=== PATIENT | male | born 1940 | race Caucasian/White ===

== ENCOUNTER 2019-07-26 15:18 | Emergency (ER) | payer MEDICARE, OTHER ==
[~2019-07-26] VITALS: Ht 180.3 cm; Wt 100.9 kg
[2019-07-26 15:20] VITALS: Ht 180.3 cm; Wt 100.9 kg
[2019-07-26] MEDS ORDERED: PACERONE200 MG PO (15:26)
[2019-07-26] MEDS ORDERED: BAYER CHEWABLE81 MG PO (15:26)
[2019-07-26] MEDS ORDERED: ATIVAN0.5 MG PO (15:28)
[2019-07-26] MEDS ORDERED: LIPITOR20 MG PO (15:28)
[2019-07-26] MEDS ORDERED: LOPID600 MG PO (15:29)
[2019-07-26] MEDS ORDERED: CELEXA20 MG PO (15:29)
[2019-07-26] MEDS ORDERED: LEVO-T125 MCG PO (15:30)
[2019-07-26] MEDS ORDERED: FUROSEMIDE20 MG PO (15:30)
[2019-07-26] MEDS ORDERED: MELATONIN 3 MG1 TAB PO (15:31)
[2019-07-26] MEDS ORDERED: FAMOTIDINE10 MG PO (15:31)
[2019-07-26] MEDS ORDERED: MIRALAX17 GM PO (15:32)
[2019-07-26] MEDS ORDERED: SENNA LAXATIVE8.6 MG PO (15:33)
[2019-07-26] MEDS ORDERED: THERMOTABS 1 GM1 GM PO (15:33)
[2019-07-26] MEDS ORDERED: MIRAPEX0.25 MG PO (15:33)
[2019-07-26] MEDS ORDERED: ASCORBIC ACID500 MG PO (15:34)
[2019-07-26] MEDS ORDERED: ZINC-220220 MG PO (15:34)
[2019-07-26] MEDS ORDERED: TRAZODONE HCL150 MG PO (15:34)
[2019-07-26] MEDS ORDERED: CALMOSEPTINE OI71 GM (15:35)
[2019-07-26] MEDS ORDERED: COLACE100 MG PO (15:35)
[2019-07-26] MEDS ORDERED: MUCINEX600 MG PO (15:36)
[2019-07-26] MEDS ORDERED: [UNRECOGNIZED DRUG - OTHER] (15:37)
[2019-07-26] MEDS ORDERED: NEPHRO-VITE RX1 TAB (15:37)
[2019-07-26] MEDS ORDERED: K-DUR20 MEQ PO (15:37)
[2019-07-26] MEDS ORDERED: CARBIDOPA-LEVO1 EAC2 PO (15:38)
[2019-07-26] MEDS ORDERED: METHOCARBAMOL500 MG PO (15:38)
[2019-07-26] MEDS ORDERED: FLUTICASONE PRO16 GM (15:39)
[2019-07-26] MEDS ORDERED: IMODIUM2 MG PO (15:39)
[2019-07-26] MEDS ORDERED: VOLTAREN100 GM (15:39)
[2019-07-26] MEDS ORDERED: ACETAMINOPHEN325 MG PO (15:40)
[2019-07-26] MEDS ORDERED: SENNA LAXATIVE8.6 MG (15:40)
[2019-07-26 19:55] VITALS: BP 117/66
== END 2019-07-26 19:55 | disposition home or self-care (01) ==
LOC: D.ER 15:18
DX: K94.23 Gastrostomy malfunction (principal)

== ENCOUNTER 2019-07-30 02:29 | Emergency (ER) | payer MEDICARE, OTHER ==
[~2019-07-30] VITALS: Ht 180.3 cm; Wt 99.1 kg
[~2019-07-30 02:29] MED LIST: ACETAMINOPHEN325 MG PO; ASCORBIC ACID500 MG PO; ATIVAN0.5 MG PO; BAYER CHEWABLE81 MG PO; CALMOSEPTINE OI71 GM; CARBIDOPA-LEVO1 EAC2 PO; CELEXA20 MG PO; COLACE100 MG PO; FAMOTIDINE10 MG PO; FLUTICASONE PRO16 GM; FUROSEMIDE20 MG PO; IMODIUM2 MG PO; K-DUR20 MEQ PO; LEVO-T125 MCG PO; LIPITOR20 MG PO; LOPID600 MG PO; MELATONIN 3 MG1 TAB PO; METHOCARBAMOL500 MG PO; MIRALAX17 GM PO; MIRAPEX0.25 MG PO; MUCINEX600 MG PO; NEPHRO-VITE RX1 TAB; PACERONE200 MG PO; SENNA LAXATIVE8.6 MG; SENNA LAXATIVE8.6 MG PO; THERMOTABS 1 GM1 GM PO; TRAZODONE HCL150 MG PO; VOLTAREN100 GM; ZINC-220220 MG PO; [UNRECOGNIZED DRUG - OTHER]
[2019-07-30 02:32] VITALS: Ht 180.3 cm; Wt 99.1 kg
[2019-07-30 04:40] VITALS: BP 119/65
== END 2019-07-30 04:40 ==
LOC: D.ER 02:29
DX: K94.23 Gastrostomy malfunction (principal); G20 Parkinson's disease; I10 Essential (primary) hypertension; I48.91 Unspecified atrial fibrillation; K21.9 Gastro-esophageal reflux disease without esophagitis

== ENCOUNTER 2019-07-31 13:07 | Emergency (ER) | payer MEDICARE, OTHER ==
[~2019-07-31] VITALS: Ht 180.3 cm; Wt 99.5 kg
[2019-07-31 13:09] VITALS: Ht 180.3 cm; Wt 99.5 kg
[2019-07-31 15:58] VITALS: BP 114/68
== END 2019-07-31 17:34 ==
LOC: D.ER 13:07
DX: K94.23 Gastrostomy malfunction (principal); I10 Essential (primary) hypertension; I48.91 Unspecified atrial fibrillation; G20 Parkinson's disease; K21.9 Gastro-esophageal reflux disease without esophagitis

== ENCOUNTER → 2019-08-01 13:39 | Outpatient (CLI) | payer MEDICARE, OTHER ==
[2019-07-31 13:09] VITALS: BMI 30.6
[2019-08-04 13:58] VITALS: BMI 29.7
== END | disposition home or self-care (01) ==
LOC: D.RAD 13:39
PROVIDERS: ATTEND Family Medicine
DX: Z93.1 Gastrostomy status (principal)

== ENCOUNTER 2019-08-03 12:00 | Inpatient (IN) | payer MEDICARE, OTHER ==
[~2019-08-03] VITALS: Ht 180.3 cm; Wt 96.6 kg
--- NOTE | 2019-08-03 13:48 | MORECARE ---
CASE MANAGEMENT DISCHARGE SUMMARY PATIENT: MARSHALL GUTIERREZ UNIT: [id number] ADM DATE: 08/03/19 AGE: 78 : 41 SEX: M ROOM/BED: D.2234 AUTHOR: LORI ELLIOTT PHYSICIAN: REFERRING PHYSICIAN: BROOKLYN ARMENDARIZ MD DATE OF SERVICE: 08/03/19 Discharge Plan Patient Name: MARSHALL GUTIERREZ [facility] [facility] 1940 Planned Disposition: [facility] Facility Anticipated Discharge Date: Discharge Date: Expected LOS: Initial Reviewer: [email or web address] Initial Review Date: 08/03/2019 Generated: 08/03/19 2:48 pm DCPIA - Discharge Planning Initial Assessment Updated by [id number]: Sharmila Peterson on 08/03/19 1:47 pm * How many steps to enter\exit or inside your home? 0/0 * PCP Dr. Kam Nelson * Pharmacy [facility] * Preadmission Environment [facility] Facility * Facility Name [facility] * ADLs Total Dependent * Other Equipment All equipment provided by [facility]. He has a wheelchair and prosper lift pad here * List name and contact numbers for known caregivers / representatives who currently or will assist patient after discharge: Merari Mikelelmer [facility] - [phone] or [facility] [phone] Nic Ricketts [facility] [phone] * Community resources currently utilized None * Additional services required to return to the preadmission environment? No * Can the patient safely return to the preadmission environment? Yes * Has this patient been hospitalized within the prior 30 days at any hospital? Yes Patient Name: MARSHALL GUTIERREZ Page [id number] at 1348 All edits/amendments must be made on the electronic document DICTATION DATE: 08/03/19 1348 PORT ENGINEER: LISBETH 08/03/19 1348 RPT#: [id number] DC DATE: STATUS: ADM IN [facility] [address] [place] [address] END OF REPORT
--- NOTE | 2019-08-03 13:57 | MORECARE ---
CASE MANAGEMENT DISCHARGE SUMMARY PATIENT: MARSHALL GUTIERREZ UNIT: [id number] ADM DATE: 08/03/19 AGE: 78 : 41 SEX: M ROOM/BED: D.2234 AUTHOR: EARL,DOC PHYSICIAN: REFERRING PHYSICIAN: BROOKLYN ARMENDARIZ MD DATE OF SERVICE: 08/03/19 Discharge Plan Patient Name: MARSHALL GUTIERREZ Facility: [facility]:[place] : 1940 Planned Disposition: [facility] Facility Anticipated Discharge Date: Discharge Date: Expected LOS: Initial Reviewer: [email or web address] Initial Review Date: 08/03/2019 Generated: 08/03/19 2:57 pm DCP- Discharge Planning Updated by [id number]: Sharmila Peterson on 08/03/19 12:[address] Patient Name: MARSHALL GUTIERREZ Admission Status: Elective Accout number: [id number] Admission Date: 08-03-2019 : 1940 Admission Diagnosis: Attending: MARCELLO, Current LOS: 1 Anticipated DC Date: Planned Disposition: [facility] Facility Primary Insurance: MEDICARE A & B Discharge Planning Comments: DC PLAN: ANTICIPATED DC NEEDS: CM met with patient to complete initial dc planning assessment. CM educated patient and daughter on the CM role and verbal consent given by daughter to complete assessment. CM verified patient's address, phone number, and emergency contact phone numbers. Patient is currently in rehab @ [facility]. At discharge patient plans to return to Nursing and Rehab and feels this is a safe discharge. LOUIS form signed by daughter for return to [place]. Signed form placed in chart and signed form given to patient's daughter. Daughter denied further known discharge needs at this time. Transportation provider at discharge will be [facility], daughter states the wheelchair and prosper lift pad are in the bathroom. I called the SNF and spoke with Soni and they are accepting him when ready for discharge . CM will continue to follow and will assist as needed with dc plans/needs. Bruise Trimmer: Sharmila Peterson DCPIA - Discharge Planning Initial Assessment Updated by [id number]: Sharmila Peterson on 08/03/19 1:47 pm * How many steps to enter\exit or inside your home? 0/0 * PCP Dr. Kam Nelson * Pharmacy [facility] * Preadmission Environment [facility] Facility * Facility Name [facility] * ADLs Total Dependent * Other Equipment All equipment provided by [facility]. He has a wheelchair and prosper lift pad here * List name and contact numbers for known caregivers / representatives who currently or will assist patient after discharge: Merari Ricketts - DTR - [phone] or [facility] [phone] Nic Ricketts - [facility] son - [phone] * Community resources currently utilized None * Additional services required to return to the preadmission environment? No * Can the patient safely return to the preadmission environment? Yes * Has this patient been hospitalized within the prior 30 days at any hospital? Yes Coverage Notice Reviewer: [id number] Lucy Peterson Notice Issued Date-Time: 08/03/2019 13:53 Notice Type: Patient Choice Letter Notice Delivered To: Family Member Relationship to Patient: Daughter Fueler Name: Elizabet Saunders Delivery Method: HAND - Hand Delivered Ronda Days: Prior Verbal Notification: Recipient Understood Notice: Yes Recipient Signature: Yes Med Rec Note Co-signed by Attending: Coverage Notice Comment: LOUIS for [facility] Last DP export: 08/03/19 12:48 p Patient Name: MARSHALL GUTIERREZ Page [id number] at 1357 All edits/amendments must be made on the electronic document DICTATION DATE: 08/03/19 1357 VICE PRESIDENT DIVERSITY: LISBETH 08/03/19 1357 RPT#: [id number] DC DATE: STATUS: ADM IN [facility] [address] [facility] [place] [address] END OF REPORT
[2019-08-03 14:40] VITALS: BP 107/56; BMI 29.7
[2019-08-03 14:40] LABS: HEMATOCRIT 33.9 % (42.0-54.0); HEMOGLOBIN 11.1 g/dL (13.5-17.5); LYMPHOCYTES 14.2 % (15-50); MCH 31.9 pg (26.0-34.0); MCHC 32.7 g/dL (31.0-37.0); MCV 97.4 fL (80.0-100.0); MEAN PLATELET VOLUME 8.4 fL (7.4-10.4); NEUTROPHILS 77.6 % (40-80); PLATELET COUNT 286 10x3/uL (130-400); RBC 3.48 10x6/uL (4.20-6.10); RDW 14.8 % (11.5-14.5); WBC 6.5 10x3/uL (4.8-10.8)
[2019-08-03 15:16] LABS: ANION GAP 14.6 mmol/L (8-16); CARBON DIOXIDE 25.6 mmol/L (21.0-32.0); CREATININE - SERUM 1.3 mg/dL (0.6-1.3); POTASSIUM - SERUM 4.2 mmol/L (3.5-5.1); T4 THYROXIN - FREE 1.21 ng/dL (0.76-1.46); THYROID STIMULATING HORMONE 7.04 uIU/mL (0.36-3.74)
[2019-08-03 15:33] LABS: C-REACTIVE PROTEIN 32.3 mg/dL (0.0-0.9)
[2019-08-03 15:49] LABS: ERYTHROCYTE SEDIMENTATION RATE 130 mm/hr (0-20)
[2019-08-03 18:26] LABS: ALBUMIN 2.2 g/dL (3.4-5.0); ANION GAP 14.2 mmol/L (8-16); BILIRUBIN - TOTAL 0.4 mg/dL (0.2-1.3); CALCIUM 9.2 mg/dL (8.5-10.1); CARBON DIOXIDE 25.2 mmol/L (21.0-32.0); CREATININE - SERUM 1.3 mg/dL (0.6-1.3); MAGNESIUM - SERUM 2.4 mg/dL (1.8-2.4); POTASSIUM - SERUM 4.4 mmol/L (3.5-5.1); PROTEIN - SERUM 6.5 g/dL (6.4-8.2); THYROID STIMULATING HORMONE 8.33 uIU/mL (0.36-3.74)
[2019-08-03 19:31] LABS: T4 THYROXIN - FREE 1.23 ng/dL (0.76-1.46)
[2019-08-03 20:29] VITALS: BP 139/71
[2019-08-04] VITALS (10 sets, daily range): BP systolic 98–143; BP diastolic 45–71; Ht 180.3 cm; Wt 96.6 kg
[2019-08-04 04:41] LABS: HEMATOCRIT 33.8 % (42.0-54.0); HEMOGLOBIN 11.1 g/dL (13.5-17.5); LYMPHOCYTES 12.5 % (15-50); MCH 32.1 pg (26.0-34.0); MCHC 32.8 g/dL (31.0-37.0); MCV 97.7 fL (80.0-100.0); MEAN PLATELET VOLUME 8.5 fL (7.4-10.4); NEUTROPHILS 83.5 % (40-80); PLATELET COUNT 273 10x3/uL (130-400); RBC 3.46 10x6/uL (4.20-6.10); RDW 14.6 % (11.5-14.5); WBC 6.7 10x3/uL (4.8-10.8)
[2019-08-04 04:46] LABS: APTT 30.1 SECONDS (22.8-39.4); INR 1.43 (0.85-1.17); PROTIME 17.3 SECONDS (11.6-15.0)
[2019-08-04 04:54] LABS: ANION GAP 17.9 mmol/L (8-16); CALCIUM 8.7 mg/dL (8.5-10.1); CARBON DIOXIDE 24.5 mmol/L (21.0-32.0); CREATININE - SERUM 1.3 mg/dL (0.6-1.3); MAGNESIUM - SERUM 2.3 mg/dL (1.8-2.4); PHOSPHOROUS 3.8 mg/dL (2.5-4.9); POTASSIUM - SERUM 4.4 mmol/L (3.5-5.1)
--- NOTE | 2019-08-04 08:32 | NUR ---
HE IS WET, CLEANED HIM AND APPLIED CREAM TO HIS BOTTOM. TURNED TO HIS LEFT SIDE. HIS PEG TUBE HAS SOME CREAMY DRAINAGE. I CLEANED AND CHANGED THE 4X4 AROUND THE PEG TUBE SITE.
--- NOTE | 2019-08-04 09:33 | NUR ---
BATH GIVEN, PRE OP MEDS GIVEN. FRIDA IS HER TO GET THE PATIENT. JAMES, THE DAUGHTER IS AT THE BEDSIDE.
--- NOTE | 2019-08-04 12:27 | NUR ---
Patient back to baseline mentation. Ok to d/c to floor per anesthesia.
--- NOTE | 2019-08-04 12:46 | NUR ---
BACK FROM VIA BED, DRESSING TO THE PEG SITE HAS SCANT AMOUNT OF DRAINAGE ON IT. HE IS ALERT, TALKING. HIS DAUGHTER, JAMES, IS AT THE BEDSIDE.
--- NOTE | 2019-08-04 18:10 | NUR ---
STARTED THE TUBE FEEDING AT 10 CC/HR. HEAD OF THE BED IS ELEVATED 40 DEGREES. THE SITE IS BLEEDING, SCANT AMOUNT. I CHANGED THE DRESSING, NEW 4X4 OVER THE PEG DISC.
[2019-08-05 00:37] VITALS: BP 101/46
[2019-08-05 05:34] LABS: HEMATOCRIT 30.3 % (42.0-54.0); HEMOGLOBIN 9.9 g/dL (13.5-17.5); MCHC 32.7 g/dL (31.0-37.0); MCV 98.1 fL (80.0-100.0); MEAN PLATELET VOLUME 8.1 fL (7.4-10.4); NEUTROPHILS 68.1 % (40-80); PLATELET COUNT 254 10x3/uL (130-400); RBC 3.09 10x6/uL (4.20-6.10); RDW 14.8 % (11.5-14.5); WBC 5.4 10x3/uL (4.8-10.8)
[2019-08-05 05:36] LABS: ANION GAP 14.2 mmol/L (8-16); CALCIUM 8.3 mg/dL (8.5-10.1); CREATININE - SERUM 1.4 mg/dL (0.6-1.3); MAGNESIUM - SERUM 2.2 mg/dL (1.8-2.4); PHOSPHOROUS 3.4 mg/dL (2.5-4.9); POTASSIUM - SERUM 4.2 mmol/L (3.5-5.1)
[2019-08-05 06:14] VITALS: BP 100/60
[2019-08-05 08:00] VITALS: BP 106/54
--- NOTE | 2019-08-05 08:15 | NUR ---
HUNG PT IV MEDICATION, NO COMPLAINT OF PAIN OR DISCOMFORT. UPED FEEDING RATE TO 30ML PER HOUR PER ORDER TO UP BY 10 ML EVERY 8 HOURS. DENIES ANY NEEDS AT THIS TIME. RESTING COMFORTABLY. WILL CONTINUE TO MONITOR.
--- NOTE | 2019-08-05 09:20 | NUR ---
ADMINISTERED MORNING MEDICATIONS AT THIS TIME, VIA PEG TUBE. TOLERATED WELL. IS TOLERATING FEEDING RATE OF 30ML, FLUSH HAS BEEN CHANGED TO 150CC EVERY 4 HOURS. CHANGED PT ALISIA PADS BECUASE THEY WERE SOILED. SITUATED PT IN BED COMFORTABLY. FAMILY IN ROOM, DENIES ANY NEEDS AT THIS TIME. WILL CONTINUE TO MONTIOR.
--- NOTE | 2019-08-05 10:26 | NUR ---
REPOSITIONED PT IN BED SO HE IS COMFORTABLE. PROVIDED PT FAMILY WITH TOOTHBRUSH, TOOTH PASTE AND MOUTH WASH SO THAT PT CAN BRUSH TEETH. DENIES ANY NEEDS AT THIS TIME. WILL CONTINUE TO MONITOR.
--- NOTE | 2019-08-05 11:21 | NUR ---
LYING IN BED,WITHOUT DISTRESS.FAMILY AT BEDSIDE
[2019-08-05 11:40] VITALS: BP 106/80
--- NOTE | 2019-08-05 11:52 | NUR ---
PT RESTING COMFORTABLY IN BED. DENIES ANY NEEDS AT THIS TIME. WILL CONTINUE TO MONITOR.
--- NOTE | 2019-08-05 13:45 | NUR ---
ADMINSTERED MEDICATION VIA PEG TUBE NOT TROUBLE, HANG IV ANTIBIOTICS. DENIES ANY NEEDS AT THIS TIME. WILL CONTINUE TO MONITOR.
--- NOTE | 2019-08-05 13:59 | OP ---
PATIENT NAME: MARSHALL GUTIERREZ MEDICAL RECORD: [id number] :[birth year] LOCATION:D.MS [id number] ADMISSION DATE:08/03/19 SURGEON: ALEXANDR CEVALLOS MD DATE OF OPERATION: 08/04/2019 PREOPERATIVE DIAGNOSIS: Dislodged gastrostomy tube with a subcutaneous abscess. POSTOPERATIVE DIAGNOSES: Dislodged gastrostomy tube with a subcutaneous abscess. PROCEDURES: 1. Esophagogastroduodenoscopy with antral biopsies to rule out Helicobacter pylori. 2. Placement of 24-Finnish balloon-type gastrostomy tube. SURGEON: Alexandr Cevallos MD MUSIC INTERNSHIP: None. BLOOD LOSS: Minimal. ANESTHESIA: General. COMPLICATIONS: None. The risks, possible complications, and alternatives to the procedure were explained to the patient's family. They elected to proceed. OPERATIVE COURSE: The patient was conveyed to the operating room electively on 08/04/2019. General anesthesia was induced by the anesthesia staff. The abdomen was sterilely prepped and draped. I gently curettaged the abscess cavity with some bone curettes. A bite block was inserted. A gastroscope was inserted into the mouth. It was advanced easily into the hypopharynx. The esophagus was easily intubated as were the stomach and duodenum. Upon withdrawal, retroflexed and angulus views were obtained. Cold endoscopic biopsies of the antrum were obtained as well. 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 I tried to advance a snare through this area and out the gastrocutaneous stoma into the area above the patient's abdomen. This was not successful. I then attempted to advance a wire up through the gastrocutaneous stoma. This was not successful. I tried to advance a biopsy forceps and this was not successful. Even with insufflation, there was no bubbling of fluid that had been instilled into the abscess cavity. Therefore, the gastrocutaneous stoma had sealed completely. As I could not traverse the area where the gastrocutaneous stoma had been through a gastric approach, I tried a percutaneous approach. The gastroscope was withdrawn. I advanced it down through the skin defect. I advanced into the abscess cavity which was large. I irrigated, aspirated the abscess cavity. I was able to advance the gastroscope and was able to identify OPERATIVE REPORT [id number] MARSHALL GUTIERREZ the gastrocutaneous stoma this way. I tried to advance the biopsy forceps and this was not successful. I tried to advance an endoscopic snare and this was not successful. I was able, however, to advance a 0.035 Glidewire. I advanced a good bit of and it felt as though it went into the stomach. I removed the gastroscope. I then readvanced the gastroscope into the hypopharynx. The esophagus was easily intubated as was the stomach. Wire could be seen in the stomach. Over the Glidewire, I advanced a 4-Finnish angled diagnostic catheter into the stomach. The Glidewire was removed. Through the 4-Finnish angled diagnostic catheter, I advanced an 0.035 Amplatz wire. I then removed the angled diagnostic catheter. Over the Amplatz wire, I loaded and then advanced a 24-Finnish balloon-type gastrostomy tube. I had already previously checked the balloon for patency and it was patent without leakage. I was able to advance it, so that the balloon was entirely within the stomach. It was inflated with 20 cc of water. I then removed the Amplatz wire. I examined the gastrostomy tube and it appeared to be well placed. The gastroscope was withdrawn. I pushed the flange of the gastrostomy tube down against the anterior abdominal wall and sutured it in place with a four point fixation utilizing 2-0 nylons. The gastrostomy tube flushed easily. A sterile dry dressing was applied. The patient was then extubated and conveyed to post-anesthesia care unit where he was in stable condition. The gastrostomy tube can be utilized for feedings immediately. TRANSINT:[id number] Voice Confirmation ID: [id number] DOCUMENT ID: [id number] ALEXANDR CEVALLOS MD at 1359 CC: BROOKLYN ARMENDARIZ MD [id number] DICTATION DATE: 08/04/191824 DATA CONVERSION ANALYST: 08/04/191948 ADM IN [facility] [address] [place] [id number]
--- NOTE | 2019-08-05 15:03 | NUR ---
PT RESTING COMFORTABLY IN BED WITH EYES CLOSED. NO S/S OF DISTRESS NOTED. CL WITHIN REACH. WILL CONTINUE TO MONITOR.
[2019-08-05 16:45] VITALS: BP 121/53
--- NOTE | 2019-08-05 18:07 | NUR ---
CHANGED PT CHUCKS DUE TO URINATION. MADE PT COMFORTABLE IN BED. DENIES ANY NEEDS AT THIS TIME. WILL CONTINUE TO MONITOR.
[2019-08-05 22:42] VITALS: BP 107/45
[2019-08-06 01:42] VITALS: BP 110/50
[2019-08-06 05:15] LABS: BASOPHILS 0 % (0-2); EOSINOPHILS 3.4 % (0-7); HEMATOCRIT 31.5 % (42.0-54.0); HEMOGLOBIN 9.8 g/dL (13.5-17.5); IMMATURE GRANULOCYTES 1.1 % (0-5); LYMPHOCYTES 21.2 % (15-50); MCH 30.9 pg (26.0-34.0); MCHC 31.1 g/dL (31.0-37.0); MCV 99.4 fL (80.0-100.0); MEAN PLATELET VOLUME 8.6 fL (7.4-10.4); NEUTROPHILS 66.3 % (40-80); PLATELET COUNT 245 10x3/uL (130-400); RBC 3.17 10x6/uL (4.20-6.10); RDW 14.8 % (11.5-14.5); WBC 6.2 10x3/uL (4.8-10.8)
[2019-08-06 06:05] LABS: ANION GAP 11.8 mmol/L (8-16); CREATININE - SERUM 1.3 mg/dL (0.6-1.3); MAGNESIUM - SERUM 1.9 mg/dL (1.8-2.4); POTASSIUM - SERUM 3.8 mmol/L (3.5-5.1)
[2019-08-06 06:06] LABS: PHOSPHOROUS 2.2 mg/dL (2.5-4.9)
[2019-08-06 06:18] VITALS: BP 114/55
[2019-08-06 08:41] VITALS: BP 105/51
--- NOTE | 2019-08-06 09:52 | NUR ---
PT RESTING QUIETLY IN BED WITH HOB ELEVATED 40 DEGREES. RESP EVEN AND UNLABORED. IV TO RIGHT FOREARM WITH NS @ 75ML/HR INFUSING VIA PUMP. SITE WITHOUT REDNESS OR EDEMA. PEG TUBE INTACT TO LEFT ABDOMEN WITH NEPRO @ 50ML/HR INFUSING VIA PUMP. NO RESIDUAL NOTED AT THIS TIME. PT DENIES PAIN AT THIS TIME. PROVIDED INCONTINENT CARE OF URINE AT THIS TIME. PT DEBRA WELL. DENIES FURTHER NEEDS AT THIS TIME. CL WITHIN REACH. ENCOURAGED TO CALL WITH NEEDS. CONTINUE POC
--- NOTE | 2019-08-06 10:30 | NUR ---
PT TUBE FEEDING INCREASED TO 55ML/HR AT THIS TIME. PT DEBRA FEEDINGS WELL
--- NOTE | 2019-08-06 11:08 | NUR ---
OT NOTE: PT VERY LETHARGIC; ASSISTED TO EOB WITH MAX ASSIST X 2; MAX ASSIST WITH STATIC SITTING X 5 MIN; BED MOB INCLUDING SIT TO SUPINE AND ROLLING IN BED WITH MAX ASSIST; POSITIONING WITH MAX ASSIST; A/AROM EXS WITH B UES AND L LE... PT VERY WEAK.. RECOMMEND CONTINUED THERAPY UPON RETURN TO SNF. NAVI GUZMÁN, OTR/L [id number]
--- NOTE | 2019-08-06 12:22 | MORECARE ---
CASE MANAGEMENT DISCHARGE SUMMARY PATIENT: MARSHALL GUTIERREZ UNIT: [id number] ADM DATE: 08/03/19 AGE: 78 : 41 SEX: M ROOM/BED: D.2234 AUTHOR: EARL,DOC PHYSICIAN: REFERRING PHYSICIAN: BROOKLYN ARMENDARIZ MD DATE OF SERVICE: 08/06/19 Discharge Plan Patient Name: MARSHALL GUTIERREZ Facility: [facility]:[place] : 1940 Planned Disposition: [facility] Facility Anticipated Discharge Date: Discharge Date: Expected LOS: Initial Reviewer: [email or web address] Initial Review Date: 08/03/2019 Generated: 08/06/19 1:22 pm DCP- Discharge Planning Updated by [id number]: Sharmila Peterson on 08/03/19 12:[address] Patient Name: MARSHALL GUTIERREZ Admission Status: Elective Accout number: [id number] Admission Date: 08-03-2019 : 1940 Admission Diagnosis: Attending: MARCELLO, Current LOS: 1 Anticipated DC Date: Planned Disposition: [facility] Facility Primary Insurance: MEDICARE A & B Discharge Planning Comments: DC PLAN: ANTICIPATED DC NEEDS: CM met with patient to complete initial dc planning assessment. CM educated patient and daughter on the CM role and verbal consent given by daughter to complete assessment. CM verified patient's address, phone number, and emergency contact phone numbers. Patient is currently in rehab @ [facility]. At discharge patient plans to return to Nursing and Rehab and feels this is a safe discharge. LOUIS form signed by daughter for return to [place]. Signed form placed in chart and signed form given to patient's daughter. Daughter denied further known discharge needs at this time. Transportation provider at discharge will be [facility], daughter states the wheelchair and prosper lift pad are in the bathroom. I called the SNF and spoke with Soni and they are accepting him when ready for discharge . CM will continue to follow and will assist as needed with dc plans/needs. Ferryboat Operator: Sharmila Peterson DCPIA - Discharge Planning Initial Assessment Updated by [email or web address]: Sharmila Peterson on 08/03/19 1:47 pm * How many steps to enter\exit or inside your home? 0/0 * PCP Dr. Kam Nelson * Pharmacy [facility] * Preadmission Environment [facility] Facility * Facility Name [facility] * ADLs Total Dependent * Other Equipment All equipment provided by [facility]. He has a wheelchair and prosper lift pad here * List name and contact numbers for known caregivers / representatives who currently or will assist patient after discharge: Merari Ricketts - DTR - [phone] or home is [phone] Nic Ricketts [facility] son - [phone] * Community resources currently utilized None * Additional services required to return to the preadmission environment? No * Can the patient safely return to the preadmission environment? Yes * Has this patient been hospitalized within the prior 30 days at any hospital? Yes External Providers External Provider: [facility] Next Contact Date: Service Request Date: Service Type: Resolution: Reviewer: Comments: Coverage Notice Reviewer: [id number] Lucy Peterson Notice Issued Date-Time: 08/03/2019 13:53 Notice Type: Patient Choice Letter Notice Delivered To: Family Member Relationship to Patient: Daughter House Detective Name: Elizabet Saunders Delivery Method: HAND - Hand Delivered Ronda Days: Prior Verbal Notification: Recipient Understood Notice: Yes Recipient Signature: Yes Med Rec Note Co-signed by Attending: Coverage Notice Comment: LOUIS for [facility] Last DP export: 08/03/19 12:57 p Patient Name: MARSHALL GUTIERREZ Page [id number] at 1222 All edits/amendments must be made on the electronic document DICTATION DATE: 08/06/19 1222 RAILRO[address] DINING CAR STEWARDESS: LISBETH 08/06/19 1222 RPT#: [id number] DC DATE: STATUS: ADM IN [facility] [address] [place] [address] END OF REPORT
[2019-08-06 12:25] VITALS: BP 109/60
--- NOTE | 2019-08-06 18:15 | MORECARE ---
CASE MANAGEMENT DISCHARGE SUMMARY PATIENT: MARSHALL GUTIERREZ UNIT: [id number] ADM DATE: 08/03/19 AGE: 78 : 42 SEX: M ROOM/BED: D.2234 AUTHOR: EARLDOC PHYSICIAN: REFERRING PHYSICIAN: BROOKLYN ARMENDARIZ MD DATE OF SERVICE: 08/06/19 Discharge Plan Patient Name: MARSHALL GUTIERREZ Facility: [facility]:[place] : 1940 Planned Disposition: [facility] Facility Anticipated Discharge Date: Discharge Date: 08/06/2019 Expected LOS: Initial Reviewer: [email or web address] Initial Review Date: 08/03/2019 Generated: 08/06/19 7:14 pm Comments DCP- Discharge Planning Updated by [id number]: Andressa Knowles on 08/06/19 5:[address] Patient Name: MARSHALL GUTIERREZ Encounter No: [id number] : 1940 Primary Insurance: MEDICARE A & B Anticipated DC Date: Planned Disposition: [facility] Facility [facility] follow-up note: Patient and family in agreement with discharge plan. No changes to plan. Case management will follow and assist as needed. D/C IMM SIGNED 08/06/19 @ 1422 Andressa Knowles DCP- Discharge Planning Updated by [id number]: Sharmila Peterson on 08/03/19 12:[address] Patient Name: MARSHALL GUTIERREZ Admission Status: Elective Accout number: [id number] Admission Date: 08-03-2019 : 1940 Admission Diagnosis: Attending: MARCELLO, Current LOS: 1 Anticipated DC Date: Planned Disposition: [facility] Facility Primary Insurance: MEDICARE A & B Discharge Planning Comments: DC PLAN: ANTICIPATED DC NEEDS: CM met with patient to complete initial dc planning assessment. CM educated patient and daughter on the CM role and verbal consent given by daughter to complete assessment. CM verified patient's address, phone number, and emergency contact phone numbers. Patient is currently in rehab @ [facility]. At discharge patient plans to return to Nursing and Rehab and feels this is a safe discharge. LOIUS form signed by daughter for return to [place]. Signed form placed in chart and signed form given to patient's daughter. Daughter denied further known discharge needs at this time. Transportation provider at discharge will be [facility], daughter states the wheelchair and prosper lift pad are in the bathroom. I called the SNF and spoke with Soni and they are accepting him when ready for discharge . CM will continue to follow and will assist as needed with dc plans/needs. Mri Assistant: Sharmila Peterson DCPIA - Discharge Planning Initial Assessment Updated by [email or web address]: Sharmila Peterson on 08/03/19 1:47 pm * How many steps to enter\exit or inside your home? 0/0 * PCP Dr. Kam Nelson * Pharmacy [facility] * Preadmission Environment [facility] Facility * Facility Name [facility] * ADLs Total Dependent * Other Equipment All equipment provided by [facility]. He has a wheelchair and prosper lift pad here * List name and contact numbers for known caregivers / representatives who currently or will assist patient after discharge: Merari Ricketts - DTR - [phone] [facility] [phone] Nic Ricketts - [facility] son - [phone] * Community resources currently utilized None * Additional services required to return to the preadmission environment? No * Can the patient safely return to the preadmission environment? Yes * Has this patient been hospitalized within the prior 30 days at any hospital? Yes Coverage Notice Reviewer: [id number] - Sharmila Peterson Notice Issued Date-Time: 08/03/2019 13:53 Notice Type: Patient Choice Letter Notice Delivered To: Family Member Relationship to Patient: Daughter Care Center Manager Name: Elizabet Saunders Delivery Method: HAND - Hand Delivered Ronda Days: Prior Verbal Notification: Recipient Understood Notice: Yes Recipient Signature: Yes Med Rec Note Co-signed by Attending: Coverage Notice Comment: LOUIS for [facility] Reviewer: [id number] - Andressa Knowles Notice Issued Date-Time: 08/06/2019 14:22 Notice Type: IM Discharge Notice Notice Delivered To: Family Member Relationship to Patient: Daughter Care Center Manager Name: Elizabet Saunders Delivery Method: HAND - Hand Delivered Ronda Days: Prior Verbal Notification: Recipient Understood Notice: Yes Recipient Signature: Yes Med Rec Note Co-signed by Attending: Coverage Notice Comment: Last DP export: 08/06/19 11:22 a Patient Name: MARSHALL GUTIERREZ Page [phone] at 1815 All edits/amendments must be made on the electronic document DICTATION DATE: 08/06/191813 INTERNAL MEDICINE SPECIALIST: LISBETH 08/06/191813 RPT#: [id number] DC DATE:08/06/19 STATUS: DIS IN [facility] [address] [place] [address] END OF REPORT
== END 2019-08-06 16:31 | DRG 394 ==
LOC: D.MS 12:00 → D.SDCHOLD 08-06 15:16 → D.MS 08-06 15:16
PROVIDERS: Internal Medicine Nephrology; Surgery; ADMIT Family Medicine; ATTEND Family Medicine
PROC: 0DH63UZ Insertion of Feeding Device into Stomach, Percutaneous Approach (ICD-10-PCS; 2019-08-04)
PROC: 0W9F4ZZ Drainage of Abdominal Wall, Percutaneous Endoscopic Approach (ICD-10-PCS; principal; 2019-08-04 09:00)
PROC: 0J983ZZ Drainage of Abdomen Subcutaneous Tissue and Fascia, Percutaneous Approach (ICD-10-PCS; 2019-08-04 09:00)
DX: K94.22 Gastrostomy infection (principal); L02.211 Cutaneous abscess of abdominal wall; T85.528A Displacement of other gastrointestinal prosthetic devices, implants and grafts, initial encounter; N17.9 Acute kidney failure, unspecified; Y83.3 Surgical operation with formation of external stoma as the cause of abnormal reaction of the patient, or of later complication, without mention of misadventure at the time of the procedure; E03.9 Hypothyroidism, unspecified; I10 Essential (primary) hypertension; I48.91 Unspecified atrial fibrillation; G31.83 Neurocognitive disorder with Lewy bodies; F02.80 Dementia in other diseases classified elsewhere, unspecified severity, without behavioral disturbance, psychotic disturbance, mood disturbance, and anxiety; J44.9 Chronic obstructive pulmonary disease, unspecified; I12.9 Hypertensive chronic kidney disease with stage 1 through stage 4 chronic kidney disease, or unspecified chronic kidney disease; N18.3 Chronic kidney disease, stage 3 (moderate); R13.10 Dysphagia, unspecified; I69.30 Unspecified sequelae of cerebral infarction

== ENCOUNTER → 2019-12-23 12:51 | Outpatient (CLI) | payer MEDICARE, OTHER ==
[2019-08-04 13:58] VITALS: BMI 29.7
== END | disposition home or self-care (01) ==
LOC: D.RAD 12:51
PROVIDERS: ATTEND Family Medicine
DX: R13.10 Dysphagia, unspecified (principal)